=== PATIENT | female | born 1980 | race Caucasian/White ===

== ENCOUNTER → 2017-11-01 | Outpatient (CLI) | payer OTHER ==
--- NOTE | 2017-11-01 22:09 | MR ---
EXAMINATION TYPE: MR lumbar spine wo con DATE OF EXAM: 11/01/2017 COMPARISON: NONE HISTORY: 37-year-old female Low back pain x4 years TECHNIQUE: Multiplanar, multisequence images of the lumbar spine were acquired. FINDINGS: Vertebral body heights are preserved and alignment is maintained. There is a component of mild congenital spinal canal narrowing in the mid to lower lumbar spine with AP canal dimension of 1.2 cm. No suspicious bone marrow replacement. Conus medullaris is normal. There is mild degenerative disc disease at L4-L5 and L5-S1 characterized by mild intervertebral disc desiccation and bulging discs. There is a posterior annular fissure at L5-S1. No large focal disc herniation is seen. From T12 through L4 levels, no significant spinal canal or neuroforaminal stenosis. At L4-L5, there is mild facet degenerative change and mild bulging disc. This minimally narrows the b ilateral inferior neural foramina. No significant spinal canal stenosis. At L5-S1, small central disc protrusion with annular fissure. Disc material closely approaches the tr aversing left S1 nerve root. Mild facet degenerative change with minimal bilateral inferior neurofora tia narrowing. No spinal canal stenosis. No prevertebral or paravertebral soft tissue abnormality. IMPRESSION: 1. Mild degenerative disc disease L4-L5 and L5-S1. There is a posterior annular fissure at L5-S1. Fin dings are superimposed on a mild congenital spinal canal stenosis. 2. Additional mild facet arthropathy lower lumbar spine. 3. At L4-L5, changes minimally narrow the bilateral inferior neural foramina. 4. At L5-S1, disc material closely approaches the traversing left S1 nerve root. There is minimal leena ateral inferior neural foraminal narrowing. 5. No large focal disc herniation or significant spinal canal stenosis.
== END | disposition home or self-care (01) ==
LOC: RADMRIMAIN 20:00
PROVIDERS: ATTEND Internal Medicine
DX: M51.37 Other intervertebral disc degeneration, lumbosacral region (principal); M46.86 Other specified inflammatory spondylopathies, lumbar region; M99.73 Connective tissue and disc stenosis of intervertebral foramina of lumbar region; M48.061 Spinal stenosis, lumbar region without neurogenic claudication; Q76.49 Other congenital malformations of spine, not associated with scoliosis
CPT/HCPCS: 72148

== ENCOUNTER → 2018-12-29 | Outpatient (CLI) | payer OTHER ==
--- NOTE | 2018-12-29 08:53 | MR ---
EXAMINATION TYPE: MR brain wo con DATE OF EXAM: 12/29/2018 COMPARISON: NONE HISTORY: Migraine headaches per order, headaches and dizziness per patient. TECHNIQUE: Multiplanar, multisequence imaging of the brain and brainstem is performed without IV cont rast. FINDINGS: Diffusion weighted images demonstrate no evidence of a recent infarct or other diffusion abnormality. There is no extraaxial fluid collection or significant white matter signal abnormality. The ventricu lar system and cisternal spaces are normal in size and appearance. The brain volume is age appropria te. Midline structures demonstrate normal morphology. The craniocervical junction appears within normal limits. Normal vascular flow voids are present. The visualized sinuses are clear and the globes are i ntact. No suspicious opacification mastoid air cells is present bilaterally. IMPRESSION: Unremarkable study. No suspicious finding seen to account for patient's symptoms of migra ine headaches or dizziness.
== END | disposition home or self-care (01) ==
LOC: RADMRIMAIN 08:05
PROVIDERS: ATTEND Internal Medicine
DX: G43.909 Migraine, unspecified, not intractable, without status migrainosus (principal)
CPT/HCPCS: 70551

== ENCOUNTER 2019-11-04 00:18 | Emergency (ER) | payer OTHER ==
[2019-11-04 00:29] VITALS: TEMP 98.2
[2019-11-04] MEDS ORDERED: IBUPROFEN ORAL SUSP 100 MG/5 ML CUP PO ONE (00:49)
[2019-11-04] MEDS ORDERED: OSELTAMIVIR 75 MG CAP PO STA (01:38)
[2019-11-04 02:15] VITALS: BP 136/89; PULSE 75; RESP 20
--- NOTE | 2019-11-04 02:18 | ED ---
General Adult HPI - General Source: patient, RN notes reviewed, old records reviewed Mode of arrival: ambulatory Limitations: no limitations <Jonathan Oseguera - Last Filed: 11/04/19 02:13> <Sugar Nuñez - Last Filed: 11/06/19 22:05> - General Chief complaint: ENT Stated complaint: ENT Time Seen by Provider: 11/04/19 00:33 - History of Present Illness Initial comments: 39-year-old female patient upper intestinal history presents to ED for chief complaint of otalgia, sore throat. The otalgia began on Wednesday her with a sore throat began yesterday. Patient reports that she had a low-grade fever yesterday. Reports that she has a very very mild dry cough. No other complaints. Patient has an IUD states that she cannot be . Systemic: Pt denies fatigue, rash. Pt denies weakness, night sweats, weight loss. Neuro: Pt denies headache, visual disturbances, syncope or pre-syncope. HEENT: Pt denies ocular discharge or irritation, otalgia, rhinorrhea, pharyngitis or notable lymphadenopathy. Cardiopulmonary: Pt denies chest pain, SOB, heart palpitations, dyspnea on exertion. Abdominal/GI: Pt denies abdominal pain, n/v/d. : Pt denies dysuria, burning w/ urination, frequency/urgency. Denies new onset urinary or bowel incontinence. MSK: Pt denies myalgia, loss of strength or function in extremities. Neuro: Pt denies new onset weakness, paresthesias. (Jonathan Oseguera) - Related Data Home Medications Medication Instructions Recorded Confirmed Galcanezumab-Gnlm [Emgality 300 mg SQ DIRECTED 11/04/19 11/04/19 Syringe] Lisdexamfetamine Dimesylate 60 mg PO QAM 11/04/19 11/04/19 [Vyvanse] Previous Rx's Medication Instructions Recorded Oseltamivir [Tamiflu] 75 mg PO Q12HR 5 Days #10 cap 11/04/19 Allergies Allergy/AdvReac Type Severity Reaction Status Date / Time clindamycin Allergy Rash/Hives Verified 11/04/19 00:30 doxycycline Allergy Rash/Hives Verified 11/04/19 00:30 gabapentin Allergy Unknown Verified 11/04/19 00:30 Penicillins Allergy Rash/Hives Verified 11/04/19 00:30 Sulfa (Sulfonamide Allergy Rash/Hives Verified 11/04/19 00:30 Antibiotics) butorphanol [From Stadol] AdvReac Unknown Verified 11/04/19 00:30 tramadol AdvReac Unknown Verified 11/04/19 00:30 Review of Systems ROS Other: All systems not noted in ROS Statement are negative. <Ana RosaJonathan J - Last Filed: 11/04/19 02:13> ROS Other: All systems not noted in ROS Statement are negative. <JovoncatrachoConcepciónSugar Tana - Last Filed: 11/06/19 22:05> ROS Statement: Those systems with pertinent positive or pertinent negative responses have been documented in the HPI. Past Medical History Additional Past Medical History / Comment(s): hypoglycemia, irreg heartbeat History of Any Multi-Drug Resistant Organisms: None Reported Additional Past Surgical History / Comment(s): IUD, ORIF left forearm, LEAP procedure Past Psychological History: Depression Smoking Status: Never smoker Past Alcohol Use History: None Reported Past Drug Use History: None Reported <Jonathan Oseguera - Last Filed: 11/04/19 02:13> General Exam Limitations: no limitations <Jonathan Oseguera Yuliya - Last Filed: 11/04/19 02:13> - General Exam Comments Initial Comments: Constitutional: NAD, AOX3, Pt has pleasant affect. HEENT: NC/AT, trachea midline, neck supple, no lymphadenopathy. Posterior pharynx mildly erythematous, without exudates. External ears appear normal, without discharge. Tympanic membranes are echols bilaterally. Mucous membranes moist. Eyes PERRLA, EOM intact. There is no scleral icterus. No pallor noted. Cardiopulmonary: RRR, no murmurs, rubs or gallops, no JVD noted. Lungs CTAB in anterior and posterior horta. No peripheral edema. Abdominal exam: Abdomen soft and non-distended. Abdomen non-tender to palpation in all 4 quadrants. Bowel sounds active in LLQ. No hepatosplenomegaly. No ecchymosis Neuro: CN II-XII grossly intact. No nuchal rigidity. No raccon eyes, no fierro sign, no hemotympanum. No cervical spinal tenderness. MSK: No posterior calf tenderness bilaterally, homans sign negative bilaterally. Posterior tibialis and radial pulse +2 bilaterally. Sensation intact in upper and lower extremities. Full active ROM in upper and lower extremities, 5/5 stregnth. (Jonathan Oseguera) Course Vital Signs 11/04/19 11/04/19 00:24 02:14 Temperature 98.2 F 98.2 F Pulse Rate 71 75 Respiratory 18 20 Rate Blood Pressure 148/94 136/89 O2 Sat by Pulse 98 Oximetry Medical Decision Making <Jonathan Oseguera - Last Filed: 11/04/19 02:13> <Sugar Nuñez - Last Filed: 11/06/19 22:05> - Medical Decision Making 39-year-old female patient upper intestinal history presents to ED for chief complaint of otalgia, sore throat. The otalgia began on Wednesday her with a sore throat began yesterday. Patient reports that she had a low-grade fever yesterday. Reports that she has a very very mild dry cough. No other complaints. Patient has an IUD states that she cannot be . Patient vital signs stable, afebrile. Physical exam is fully mildly erythematous posterior pharynx without exudates. Lymph investigations are obtained, influenza B is positive. Rapid strep is negative. Patient offered Tamiflu wishes to be initiated. Will discharge to follow up with primary care provider will return to ER if condition worsens. Case discussed with Dr. Nuñez. (Jonathan Oseguera) I was available for consultation in the emergency department. The history and physical exam were done by the midlevel provider. I was consulted for this patients care. I reviewed the case with the midlevel provider and based on their presentation of the patient, I agree with the assessment, medical decision making and plan of care as documented. Chart was dictated using [employer] dictation software. Attempts were made to correct any dictation errors however some typographical errors may persist. (Sugar Nuñez) - Lab Data Lab Results 11/04/19 11/04/19 Range/Units 00:55 00:55 Influenza Type A RNA Not Detected (Not Detectd) Influenza Type B (PCR) Detected H (Not Detectd) Group A Strep Rapid Negative (Negative) Disposition Is patient prescribed a controlled substance at d/c from ED?: No <Jonathan Oseguera - Last Filed: 02/22/20 02:13> <Sugar Nuñez - Last Filed: 11/06/19 22:05> Clinical Impression: Influenza B Disposition: HOME SELF-CARE Condition: Stable Additional Instructions: Take medication as directed. Follow-up with primary care provider tomorrow. Return to ER if condition worsens. Prescriptions: Oseltamivir [Tamiflu] 75 mg PO Q12HR 5 Days #10 cap Referrals: Shon Weiss MD [Primary Care Provider] - 1-2 days
== END 2019-11-04 02:27 | disposition home or self-care (01) ==
LOC: EC 00:18
DX: J10.1 Influenza due to other identified influenza virus with other respiratory manifestations (principal); Z79.899 Other long term (current) drug therapy; Z88.0 Allergy status to penicillin; Z88.1 Allergy status to other antibiotic agents; Z88.2 Allergy status to sulfonamides; Z88.5 Allergy status to narcotic agent; Z88.8 Allergy status to other drugs, medicaments and biological substances
CPT/HCPCS: 87081; 87430; 87502; 99283

== ENCOUNTER → 2020-12-03 | Outpatient (CLI) | payer OTHER | LOC: CPPFTMAIN 10:35 | PROVIDERS: ATTEND Internal Medicine | DX: R06.00 Dyspnea, unspecified (principal) | CPT/HCPCS: 94060; 94726; 94729 ==

== ENCOUNTER → 2022-08-30 | Outpatient (CLI) | payer OTHER ==
--- NOTE | 2022-08-30 10:45 | MR ---
EXAMINATION TYPE: MR brain wo/w con DATE OF EXAM: 08/30/2022 10:32 AM CLINICAL INDICATION:Female, 42 years old with history of [id number]; COMPARISON: MR brain 12/19/2018. TECHNIQUE: Multi planar, multi sequence imaging was performed through the brain including: T1, T2, In version recovery, susceptibility weighted imaging and gradient echo imaging and Diffusion weighted im aging. The patient was then given intravenous contrast and multi planar, T1 fat-saturation images wer e obtained. IV Contrast: 6.5 cc Gadavist FINDINGS: The echols-white junctions, ventricular system, basal cisterns appear unremarkable. Diffusion-weighted imaging shows no evidence of restricted diffusion to suggest acute/subacute infarct. Intracranial art erial flow voids are maintained. Midline structures show no abnormality. The susceptibility weighted images do not reveal any evidence for micro-hemorrhage. After administration of gadolinium, no abnorm al enhancement is seen. The cerebellar tonsils extend into the foramen magnum approximately 3 mm. The bone marrow signal is within normal limits. Paranasal sinuses and mastoid air cells: Mild scattered paranasal sinus disease. Visualized orbits: Orbital contents are intact. IMPRESSION: 1. No evidence of intracranial mass, acute/subacute infarct, or abnormal enhancement. 2. Mild cerebellar tonsillar ectopia.
== END | disposition home or self-care (01) ==
LOC: RADMRIMAIN 10:00
PROVIDERS: ATTEND Physician Assistant
DX: G43.909 Migraine, unspecified, not intractable, without status migrainosus (principal); Q04.8 Other specified congenital malformations of brain
CPT/HCPCS: 70553; A9585

== ENCOUNTER → 2023-01-25 | Outpatient (CLI) | payer OTHER ==
--- NOTE | 2023-01-25 08:50 | US ---
EXAMINATION TYPE: US abdomen limited DATE OF EXAM: 01/25/2023 COMPARISON: NONE CLINICAL INDICATION: Female, 42 years old with history of R22.9 LOCALIZED SWELLING, MASS AND LUMP, UN SPECIFI; Mass of skin within the left abdomen x couple months secondary to dog bite. Area is painfu l when patient is running. No hx of abdominal surgeries. Scanned the abdomen left of the umbilicus. Lesion of mixed echogenicity seen at palpable area of concern within left abdomen: 1.4 x 1.3 x 0.9 cm . IMPRESSION: 1.4 x 1.3 x 0.9 well-circumscribed mass in the soft tissues of the anterior abdominal wall with heter ogeneous contents possibly indicating hemorrhage or pus. There is no internal blood flow to indicate solid components. Ultrasound-guided aspiration might be useful for further evaluation.
== END | disposition home or self-care (01) ==
LOC: RADUSWWP 06:55
PROVIDERS: ATTEND Family Medicine
DX: R19.09 Other intra-abdominal and pelvic swelling, mass and lump (principal)
CPT/HCPCS: 76705

== ENCOUNTER 2024-06-02 15:29 | Emergency (ER) | payer OTHER ==
[2024-06-02 15:41] VITALS: TEMP 98
--- NOTE | 2024-06-02 16:19 | ED ---
Back Pain HPI - General Source: patient, RN notes reviewed Mode of arrival: ambulatory Limitations: no limitations <Autumn Rivera - Last Filed: 06/02/24 16:18> - History of Present Illness MD Complaint: back pain -: hour(s) (2) Similar Symptoms Previously: Yes Place: home Radiation: right leg Severity: severe Severity scale (1-10): 9 Quality: sharp Consistency: constant Improves With: none Worsens With: none Associated Symptoms: denies other symptoms Treatments Prior to Arrival: other (0) <Robert Cheema - Last Filed: 06/14/24 17:31> - General Chief Complaint: Back Pain/Injury Stated Complaint: Abdominal Pain Time Seen by Provider: 06/02/24 16:18 - History of Present Illness Initial Comments: Quick Note: This is a 44-year-old female who presents to the emergency department for right flank pain. States that it started a couple of hours prior to arrival. Pain wraps around into the abdomen. She has associated nausea and vomiting. Denies any history of kidney stones or similar symptoms in the past. (Autumn Rivera) This is a 44-year-old female to the ER for evaluation of severe sudden onset of right flank pain flank pain rating to groin and back no history of kidney stones and symptoms were sudden onset just 2 hours prior to arrival nausea vomiting positive vomiting feels hot feels lightheaded feels like she could pass out due to pain (Robert Cheema) - Related Data Home Medications Medication Instructions Recorded Confirmed Galcanezumab-Gnlm [Emgality 300 mg SQ DIRECTED 11/04/19 11/04/19 Syringe] Lisdexamfetamine Dimesylate 60 mg PO QAM 11/04/19 11/04/19 [Vyvanse] Previous Rx's Medication Instructions Recorded Oseltamivir [Tamiflu] 75 mg PO Q12HR 5 Days #10 cap 11/04/19 Allergies Allergy/AdvReac Type Severity Reaction Status Date / Time clindamycin Allergy Rash/Hives Verified 06/02/24 15:41 doxycycline Allergy Rash/Hives Verified 06/02/24 15:41 gabapentin Allergy Unknown Verified 06/02/24 15:41 Penicillins Allergy Rash/Hives Verified 06/02/24 15:41 Sulfa (Sulfonamide Allergy Rash/Hives Verified 06/02/24 15:41 Antibiotics) butorphanol [From Stadol] AdvReac Unknown Verified 06/02/24 15:41 tramadol AdvReac Unknown Verified 06/02/24 15:41 Review of Systems ROS Other: All systems not noted in ROS Statement are negative. <Autumn Rivera - Last Filed: 06/02/24 16:18> ROS Other: All systems not noted in ROS Statement are negative. <Robert Cheema - Last Filed: 06/14/24 17:31> ROS Statement: Those systems with pertinent positive or pertinent negative responses have been documented in the HPI. Past Medical History Additional Past Medical History / Comment(s): hypoglycemia, irreg heartbeat History of Any Multi-Drug Resistant Organisms: None Reported Additional Past Surgical History / Comment(s): IUD, ORIF left forearm, LEAP procedure Past Psychological History: Depression Smoking Status: Never smoker Past Alcohol Use History: None Reported Past Drug Use History: None Reported <Autumn Rivera - Last Filed: 06/02/24 16:18> General Exam Limitations: no limitations <Autumn Rivera - Last Filed: 06/02/24 16:18> General appearance: alert, in no apparent distress Head exam: Present: atraumatic, normocephalic, normal inspection Eye exam: Present: normal appearance, PERRL, EOMI. Absent: scleral icterus, conjunctival injection, periorbital swelling ENT exam: Present: normal exam, mucous membranes moist Neck exam: Present: normal inspection. Absent: tenderness, meningismus, lym phadenopathy Respiratory exam: Present: normal lung sounds bilaterally. Absent: respiratory distress, wheezes, rales, rhonchi, stridor Cardiovascular Exam: Present: regular rate, normal rhythm, normal heart sounds. Absent: systolic murmur, diastolic murmur, rubs, gallop, clicks GI/Abdominal exam: Present: soft, normal bowel sounds. Absent: distended, tenderness, guarding, rebound, rigid Extremities exam: Present: normal inspection, full ROM, normal capillary refill. Absent: tenderness, pedal edema, joint swelling, calf tenderness Back exam: Present: normal inspection Neurological exam: Present: alert, oriented X3, CN II-XII intact Psychiatric exam: Present: normal affect, normal mood Skin exam: Present: warm, dry, intact, normal color. Absent: rash <Robert Cheema - Last Filed: 06/14/24 17:31> - General Exam Comments Initial Comments: Visual Physical Exam Vital signs reviewed General: In distress Head: Normocephalic, atraumatic Eyes: PERRLA, EOMI ENT: Airway patent Chest: Nonlabored breathing Skin: No visual rash, normal skin tone Neuro: Alert and oriented 3 Musculoskeletal: No gross abnormalities (Autumn Rviera) Course <Robert Cheema - Last Filed: 06/14/24 17:31> Vital Signs 06/02/24 06/02/24 06/02/24 15:40 18:45 20:29 Temperature 98.0 F Pulse Rate 61 64 82 Respiratory 17 20 18 Rate Blood Pressure 149/80 133/94 111/70 O2 Sat by Pulse 100 97 97 Oximetry 06/02/24 22:54 Temperature 98.0 F Pulse Rate 74 Respiratory 18 Rate Blood Pressure 108/79 O2 Sat by Pulse 100 Oximetry - Reevaluation(s) Reevaluation #1: 06/02/24 16:56 Records reviewed (Robert Cheema) Reevaluation #2: 06/02/24 16:57 Patient symptoms unchanged Difficult to control pain (Robert Cheema) Reevaluation #3: Patient informed of results and questions answered (Robert Cheema) Reevaluation #4: Was pt. sent in by a medical professional or institution (, PA, STRESS ANALYST, urgent care, hospital, or [facility]...) When possible be specific @ -no Did you speak to anyone other than the patient for history (EMS, parent, family, police, friend...)? What history was obtained from this source @ -no Did you review nursing and triage notes (agree or disagree)? Why? @ -agree Are old charts reviewed (outside hosp., previous admission, EMS record, old EKG, old radiological studies, urgent care reports/EKG's, [facility] records)? Report findings @ -yes Differential Diagnosis (chest pain, altered mental status, abdominal pain women, abdominal pain men, vaginal bleeding, weakness, fever, dyspnea, syncope, headac he, dizziness, GI bleed, back pain, seizure, CVA, palpatations, mental health, musculoskeletal)? @ -prior EKG interpreted by me (3pts min.). @ -yes X-rays interpreted by me (1pt min.). @ -no CT interpreted by me (1pt min.). @ -Yes positive for kidney stone U/S interpreted by me (1pt. min.). @ -no What testing was considered but not performed or refused? (CT, X-rays, U/S, labs)? Why? @ -none What meds were considered but not given or refused? Why? @ -none Did you discuss the management of the patient with other professionals (professionals i.e. DrLeyla, PA, STRESS ANALYST, lab, RT, psych nurse, foster care social worker, call center supervisor, teacher, assurance officer, pillowcase cutter)? Give summary @ -no Was smoking cessation discussed for >3mins.? @ -no Was critical care preformed (if so, how long)? @ -no Were there social determinants of health that impacted care today? How? (Homelessness, low income, unemployed, alcoholism, drug addiction, transportation, low edu. Level, literacy, decrease access to med. care, assisted, r ehab)? @ -none Was there de-escalation of care discussed even if they declined (Discuss DNR or withdrawal of care, Hospice)? DNR status @ -no What co-morbidities impacted this encounter? (DM, HTN, Smoking, COPD, CAD, Cancer, CVA, ARF, Chemo, Hep., AIDS, mental health diagnosis, sleep apnea, morbid obesity)? @ -none Was patient admitted / discharged? Hospital course, mention meds given and route , prescriptions, significant lab abnormalities, going to OR and other pertinent info. @ - 44 female to the ER for evaluation of abdominal pain kidney stone pain. Patient's pain is controlled and he can be discharged home Discharged Undiagnosed new problem with uncertain prognosis? @ -no Drug Therapy requiring intensive monitoring for toxicity (Heparin, Nitro, Insulin, Cardizem)? @ -no Were any procedures done? @ -no Diagnosis/symptom? @ -Kidney stone with kidney stone pain Acute, or Chronic, or Acute on Chronic? @ -Acute Uncomplicated (without systemic symptoms) or Complicated (systemic symptoms)? @ -Complicated Side effects of treatment? @ -no Exacerbation, Progression, or Severe Exacerbation? @ -exacerbation Poses a threat to life or bodily function? How? (Chest pain, [place], [place], pneumonia, PE, COPD, DKA, ARF, appy, cholecystitis, CVA, Diverticulitis, Homicidal, Suicidal, threat to staff... and all critical care pts) @ -no (Robert Cheema) Reevaluation #5: Differential Abdominal Pain Women: Appendicitis, Cholecystitis, diverticulosis, ischemic bowel, pancreatitis, hepatitis, UTI, gastroenteritis, AAA, incarcerated hernia, bowel obstruction, constipation, inflammatory bowel, hepatitis, peptic ulcer disease, splenic infarction, perforated viscus, vulvitis, ovarian torsion, PID, kidney stone, placenta abruption, this is not meant to be an all-inclusive list (Robert Cheema) Medical Decision Making <Autumn Rivera - Last Filed: 06/02/24 16:18> - Lab Data Result diagrams: 06/02/24 16:29 06/02/24 16:29 - Radiology Data Radiology results: report reviewed (CT abdomen pelvis is negative for acute disease), image reviewed <Robert Cheema - Last Filed: 06/14/24 17:31> - Medical Decision Making I performed the QuickNote portion of this chart. Signed Autumn Rivera PA-C. (Autumn Rivera) 44 female to the ER for evaluation of abdominal pain kidney stone pain. Patient's pain is controlled and he can be discharged home (Robert Cheema) - Lab Data Lab Results 06/02/24 06/02/24 06/02/24 Range/Units 16:29 16:29 16:29 WBC 12.4 H (3.8-10.6) k/uL RBC 4.64 (3.80-5.40) m/uL Hgb 14.2 (11.4-16.0) gm/dL Hct 42.7 (34.0-46.0) % MCV 92.1 (80.0-100.0) fL MCH 30.6 (25.0-35.0) pg MCHC 33.2 (31.0-37.0) g/dL RDW 12.2 (11.5-15.5) % Plt Count 228 (150-450) k/uL MPV 8.0 Neutrophils % 83 % Lymphocytes % 11 % Monocytes % 5 % Eosinophils % 1 % Basophils % 0 % Neutrophils # 10.2 H (1.3-7.7) k/uL Lymphocytes # 1.3 (1.0-4.8) k/uL Monocytes # 0.6 (0-1.0) k/uL Eosinophils # 0.1 (0-0.7) k/uL Basophils # 0.0 (0-0.2) k/uL Sodium 137 (137-145) mmol/L Potassium 4.4 (3.5-5.1) mmol/L Chloride 109 H (98-107) mmol/L Carbon Dioxide 19 L (22-30) mmol/L Anion Gap 9 mmol/L BUN 12 (7-17) mg/dL Creatinine 0.89 (0.52-1.04) mg/dL Est GFR (CKD-EPI)AfAm >90 (>60 ml/min/1.73 sqM) Est GFR (CKD-EPI)NonAf 80 (>60 ml/min/1.73 sqM) Glucose 112 H (74-99) mg/dL Plasma Lactic Acid Shay (0.7-2.0) mmol/L Calcium 9.8 (8.4-10.2) mg/dL Total Bilirubin 0.7 (0.2-1.3) mg/dL AST 25 (14-36) U/L ALT 20 (4-34) U/L Alkaline Phosphatase 52 (38-126) U/L Total Protein 7.4 (6.3-8.2) g/dL Albumin 4.6 (3.5-5.0) g/dL Amylase 52 (30-110) U/L Lipase 72 (23-300) U/L HCG, Qual Not Detected Urine Color Yellow Urine Appearance Turbid H (Clear) Urine pH 7.5 (5.0-8.0) Ur Specific [place] 1.022 (1.001-1.035) Urine Protein Trace H (Negative) Urine Glucose (UA) Negative (Negative) Urine Ketones 1+ H (Negative) Urine Blood Negative (Negative) Urine Nitrite Negative (Negative) Urine Bilirubin Negative (Negative) Urine Urobilinogen <2.0 (<2.0) mg/dL Ur Leukocyte Esterase Negative (Negative) Urine RBC 7 H (0-5) /hpf Ur Squamous Epith Cells 1 (0-4) /hpf Urine Bacteria Rare H (None) /hpf Urine Mucus Rare H (None) /hpf 06/02/24 Range/Units 16:29 WBC (3.8-10.6) k/uL RBC (3.80-5.40) m/uL Hgb (11.4-16.0) gm/dL Hct (34.0-46.0) % MCV (80.0-100.0) fL MCH (25.0-35.0) pg MCHC (31.0-37.0) g/dL RDW (11.5-15.5) % Plt Count (150-450) k/uL MPV Neutrophils % % Lymphocytes % % Monocytes % % Eosinophils % % Basophils % % Neutrophils # (1.3-7.7) k/uL Lymphocytes # (1.0-4.8) k/uL Monocytes # (0-1.0) k/uL Eosinophils # (0-0.7) k/uL Basophils # (0-0.2) k/uL Sodium (137-145) mmol/L Potassium (3.5-5.1) mmol/L Chloride (98-107) mmol/L Carbon Dioxide (22-30) mmol/L Anion Gap mmol/L BUN (7-17) mg/dL Creatinine (0.52-1.04) mg/dL Est GFR (CKD-EPI)AfAm (>60 ml/min/1.73 sqM) Est GFR (CKD-EPI)NonAf (>60 ml/min/1.73 sqM) Glucose (74-99) mg/dL Plasma Lactic Acid Shay 1.3 (0.7-2.0) mmol/L Calcium (8.4-10.2) mg/dL Total Bilirubin (0.2-1.3) mg/dL AST (14-36) U/L ALT (4-34) U/L Alkaline Phosphatase (38-126) U/L Total Protein (6.3-8.2) g/dL Albumin (3.5-5.0) g/dL Amylase (30-110) U/L Lipase (23-300) U/L HCG, Qual Urine Color Urine Appearance (Clear) Urine pH (5.0-8.0) Ur Specific [place] (1.001-1.035) Urine Protein (Negative) Urine Glucose (UA) (Negative) Urine Ketones (Negative) Urine Blood (Negative) Urine Nitrite (Negative) Urine Bilirubin (Negative) Urine Urobilinogen (<2.0) mg/dL Ur Leukocyte Esterase (Negative) Urine RBC (0-5) /hpf Ur Squamous Epith Cells (0-4) /hpf Urine Bacteria (None) /hpf Urine Mucus (None) /hpf Disposition <Autumn Rivera - Last Filed: 06/02/24 16:18> Is patient prescribed a controlled substance at d/c from ED?: No Time of Disposition: 17:50 <Robert Cheema - Last Filed: 06/14/24 17:31> Clinical Impression: Right ureteral stone Disposition: HOME SELF-CARE Condition: Good Instructions (If sedation given, give patient instructions): Kidney Stones (ED) Referrals: Willie Levy MD [Primary Care Provider] - 1-2 days Gwyn Marks MD [STAFF PHYSICIAN] - 1-2 days
[2024-06-02] MEDS: KETOROLAC 15 MG/ML 1 ML VIAL IVP STA ×2 (16:50→20:23)
[2024-06-02] MEDS: ONDANSETRON 4 MG/2 ML VIAL IVP STA ×2 (16:50→18:54)
[2024-06-02] MEDS: MORPHINE SULFATE 4 MG/ML SYRINGE IVP STA ×2 (16:50→17:02)
[2024-06-02] MEDS: HYDROmorphone 1 MG/ML 1 ML SYRINGE IVP STA (17:02)
[2024-06-02 17:05] LABS: Basophils % (A) 0 %; Eosinophils # (A) 0.1 k/uL (0-0.7); Eosinophils % (A) 1 %; HCT 42.7 % (34.0-46.0); HGB 14.2 gm/dL (11.4-16.0); Lymphocytes # (A) 1.3 k/uL (1.0-4.8); Lymphocytes % (A) 11 %; MCH 30.6 pg (25.0-35.0); MCHC 33.2 g/dL (31.0-37.0); MCV 92.1 fL (80.0-100.0); Monocytes # (A) 0.6 k/uL (0-1.0); Monocytes % (A) 5 %; Neutrophils # (A) 10.2 k/uL (1.3-7.7); Neutrophils % (A) 83 %; Platelet Count 228 k/uL (150-450); RBC 4.64 m/uL (3.80-5.40); RDW 12.2 % (11.5-15.5); WBC 12.4 k/uL (3.8-10.6)
[2024-06-02 17:12] LABS: Appearance,Urine Turbid (Clear); Bacteria,Urine Rare /hpf; Bilirubin,Urine Negative (Negative); Blood,Urine Negative (Negative); Color,Urine Yellow; Glucose,Urine (UA) Negative (Negative); Ketones,Urine 1+ (Negative); Leukocyte Esterase,Urine Negative (Negative); Mucus,Urine Rare /hpf; Nitrite,Urine Negative (Negative); PH, Urine 7.5 (5.0-8.0); Protein,Urine Trace (Negative); RBC,Urine 7 /hpf (0-5); Specific Gravity,Urine 1.022 (1.001-1.035); Squamous Epithelial Cell,Urine 1 /hpf (0-4); Urobilinogen,Urine <2.0 mg/dL (<2.0)
[2024-06-02 17:19] LABS: ALT 20 U/L (4-34); AST 25 U/L (14-36); African American GFR (CKD) >90 (>60 ml/min/1.73 sqM); Albumin 4.6 g/dL (3.5-5.0); Alkaline Phosphatase 52 U/L (38-126); Amylase 52 U/L (30-110); Anion Gap 9 mmol/L; Blood Urea Nitrogen 12 mg/dL (7-17); Calcium 9.8 mg/dL (8.4-10.2); Carbon Dioxide 19 mmol/L (22-30); Chloride 109 mmol/L (98-107); Glucose 112 mg/dL (74-99); Lipase 72 U/L (23-300); Non-African American GFR(CKD) 80 (>60 ml/min/1.73 sqM); Potassium 4.4 mmol/L (3.5-5.1); Sodium 137 mmol/L (137-145); Total Bilirubin 0.7 mg/dL (0.2-1.3); Total Protein 7.4 g/dL (6.3-8.2)
[2024-06-02 17:43] LABS: HCG,Qualitative Serum Not Detected
--- NOTE | 2024-06-02 17:46 | CT ---
EXAMINATION TYPE: CT abdomen pelvis wo con DATE OF EXAM: 06/02/2024 COMPARISON: None INDICATION: Rt side flank pain. DLP: 452.4 mGycm, Automated exposure control for dose reduction was used. CONTRAST: 0 mL of Isovue 300. Study performed without Oral Contrast TECHNIQUE: Axial images were obtained from above the diaphragm to the pubic rami in the axial plane a t 5 mm thick sections. Reconstructed images are reviewed on the computer in the coronal plane. FINDINGS: Limited CT sections are obtained the lung bases. The lung bases are clear. CT ABDOMEN: Liver: Normal Spleen: Normal Pancreas: Normal Adrenal glands: The adrenal glands are normal. Gallbladder: Normal Kidneys: No masses are evident. There is a nonobstructing right renal stone measuring 0.4 cm posterio r mid right kidney. Mild right hydronephrosis and mild to moderate right hydroureter is present. No c ysts are present. There is a 0.3 cm obstructing distal right ureteral vesicle junction stone with mo derate right hydroureter and mild right hydronephrosis. Aorta: Vascular calcification is within the aorta. Inferior vena cava: Normal. CT PELVIS: Loops of bowel within the abdomen and pelvis are normal. Mild fecal areas within the colon The st udy is without oral contrast limiting bowel evaluation. Appendix: Normal as visualized. Urinary bladder: Normal. Genitourinary structures: Uterus is normal. IUD is within the uterus. There is a 2.0 cm right ovarian cyst Osseous structures: No suspicious lytic or sclerotic lesions. IMPRESSION: 1. 0.3 cm obstructing distal right ureteral vesicle junction stone with moderate right hydroureter a nd mild right hydronephrosis. 2. Nonobstructing 0.4 cm mid right renal calcification. 3. 2.0 cm right ovarian cyst. 4. Normal appendix. [facility], , 06/02/2024 5:43 PM
[2024-06-02] MEDS: MORPHINE SULFATE 4 MG/ML SYRINGE IV STA ×2 (18:48→20:25)
[2024-06-02] MEDS: TAMSULOSIN 0.4 MG CAP.ER.24H PO STA (19:34)
[2024-06-02] MEDS: ACET/COD 300 MG/30 MG STARTER PACK 6 TAB BTL PO STA ×2 (19:35→22:53)
[2024-06-02] MEDS: IBUPROFEN 600 MG STARTER PACK 4 TAB BTL PO STA ×2 (19:35→22:52)
[2024-06-02] MEDS: ONDANSETRON 4 MG ODT STARTER PACK 2 TAB BTL PO STA ×2 (19:35→22:52)
[2024-06-02] MEDS ORDERED: TAMSULOSIN 0.4 MG CAP.ER.24H PO STA (20:05)
[2024-06-02] MEDS: PROCHLORPERAZINE INJ 10 MG/2 ML VIAL IVP STA (20:21)
[2024-06-02] MEDS: SODIUM CHLORIDE 0.9% 2,000 ML IV STA (20:25)
[2024-06-02 20:30] VITALS: RESP 18
[2024-06-02 22:55] VITALS: BP 108/79; PULSE 74
== END 2024-06-02 23:02 | disposition home or self-care (01) ==
LOC: EC 15:29
DX: R10.9 Unspecified abdominal pain
CPT/HCPCS: 36415; 74176; 80053; 81001; 82150; 83605; 83690; 84703; 85025; 96361; 96374; 96375; 96376; 99284

== ENCOUNTER → 2024-12-26 | Outpatient (CLI) | payer OTHER ==
--- NOTE | 2024-12-27 07:28 | MM ---
Reason for Exam: Screening (asymptomatic). Patient History: Menarche at age 18. First Full-Term at age 25. Patient used Hormonal Contraceptives for 20 years. Maternal aunt had breast cancer, age 65. Risk Values: Kate 5 year model risk: 0.5%. NCI Lifetime model risk: 8.1%. Tissue Density: There are scattered areas of fibroglandular density. Findings: Analyzed By CAD. Asymmetric distortion upper outer right breast approximately 7 cm from the nipple. Additional views are recommended. No suspicious microcalcifications. No skin thickening or distinct mass. Overall Assessment: Incomplete: need additional imaging evaluation, BI-RAD 0 Management: Diagnostic Mammogram of the right breast. . Patient should continue monthly self-breast exams. A clinical breast exam by your physician is recommended on an annual basis. This exam should not preclude additional follow-up of suspicious palpable abnormalities. Note on Kate scores and lifetime risk: 1. A Kate score greater than 3% is considered moderate risk. If this is the case, consider specialist referral to assess eligibility for a risk reducing agent. 2. If overall lifetime risk for the development of breast cancer is 20% or higher, the patient may qualify for future screening with alternating mammogram and breast MRI. [facility], , 12/27/2024 7:25 AM. Electronically signed and approved by: Bill Ricks M.D. Radiologis
== END | disposition home or self-care (01) ==
LOC: RADMAMWWP 16:26
PROVIDERS: ATTEND Family Medicine
DX: Z12.31 Encounter for screening mammogram for malignant neoplasm of breast (principal); R92.323 Mammographic fibroglandular density, bilateral breasts; Z92.0 Personal history of contraception; Z80.3 Family history of malignant neoplasm of breast
CPT/HCPCS: 77063; 77067

== ENCOUNTER → 2024-12-29 | Outpatient (CLI) | payer OTHER ==
--- NOTE | 2024-12-29 09:00 | MM ---
Reason for Exam: Additional evaluation requested from abnormal screening. Last screening mammogram was performed less than 1 month ago. Patient History: Menarche at age 18. First Full-Term at age 25. Patient used Hormonal Contraceptives for 20 years. Maternal aunt had breast cancer, age 65. Risk Values: Kate 5 year model risk: 0.5%. NCI Lifetime model risk: 8.1%. Tissue Density: Right: The breasts are heterogeneously dense, which may obscure small masses. Findings: Analyzed By CAD. No persistent distortion post compression. No suspicious grouped calcifications. Overall Assessment: Probably benign, BI-RAD 3 Management: Diagnostic Mammogram of the right breast in 6 months. . Results were given to the patient verbally at the time of exam. Patient should continue monthly self-breast exams. A clinical breast exam by your physician is recommended on an annual basis. This exam should not preclude additional follow-up of suspicious palpable abnormalities. Note on Kate scores and lifetime risk: 1. A Kate score greater than 3% is considered moderate risk. If this is the case, consider specialist referral to assess eligibility for a risk reducing agent. 2. If overall lifetime risk for the development of breast cancer is 20% or higher, the patient may qualify for future screening with alternating mammogram and breast MRI. [facility], , 12/29/2024 8:57 AM. Electronically signed and approved by: Abhi Randhawa M.D. Radiologis
== END | disposition home or self-care (01) ==
LOC: RADMAMWWP 08:36
PROVIDERS: ATTEND Family Medicine
DX: R92.8 Other abnormal and inconclusive findings on diagnostic imaging of breast (principal); R92.331 Mammographic heterogeneous density, right breast; Z92.0 Personal history of contraception; Z80.3 Family history of malignant neoplasm of breast
CPT/HCPCS: 77061; 77065